=== PATIENT | male | born 1975 | race Caucasian/White ===

== ENCOUNTER → 2020-05-07 | Outpatient (CLI) | payer OTHER, SELFPAY ==
[~2020-05-07] VITALS: Ht 172.7 cm; Wt 68.0 kg
--- NOTE | 2020-05-07 17:08 | NUR ---
CALLING 'S OFFICE TO CLARIFY THE ORDER: RIGHT URETEROSCOPY WITH LASER LITHOTRIPSY.
[2020-05-07 17:44] LABS: BASOPHIL % 0.6 % (0-2); RED CELL DISTRIBUTION WIDTH 13.2 % (11.5-14.5)
[2020-05-07 17:49] LABS: PLATELET COUNT 410 x10^3mcL (130-400)
[2020-05-07 17:52] LABS: microscopic required? YES; urine erythrocyte 1+ (NEGATIVE)
[2020-05-07 17:55] LABS: ALBUMIN 3.4 g/dL (3.4-5.0); ALKALINE PHOSPHATASE 114 U/L (46-116); ALT/SGPT 41 U/L (16-63); BILIRUBIN TOTAL 0.54 mg/dL (0.20-1.00); CALCIUM 8.9 mg/dL (8.5-10.1); CARBON DIOXIDE 30.7 mmol/L (21-32); CHLORIDE SERUM 103 mmol/L (98-107); GFR1 > 60 mL/min; POTASSIUM SERUM 4.2 mmol/L (3.5-5.1); SODIUM SERUM 139 mmol/L (136-145); TOTAL PROTEIN, SERUM 7.4 g/dL (6.4-8.2)
[2020-05-07 18:11] LABS: AST/SGOT 35 U/L (15-37)
[2020-05-07 18:18] LABS: GLUCOSE SERUM 100 mg/dL (74-106)
== END | disposition home or self-care (01) ==
LOC: LB 10:00 → OR 05-10 07:30 → DS 05-10 07:30 → EDSTATUS 05-10 07:30
PROVIDERS: ATTEND Urology
DX: N20.0 Calculus of kidney (principal)

== ENCOUNTER 2020-05-21 06:11 | Day surgery (SDC) | payer OTHER, SELFPAY ==
[2020-05-17 15:00] LABS: RED CELL DISTRIBUTION WIDTH 12.9 % (11.5-14.5)
[2020-05-17 15:13] LABS: CALCIUM 9.2 mg/dL (8.5-10.1); CARBON DIOXIDE 31.8 mmol/L (21-32); CREATININE SERUM 1.4 mg/dL (0.7-1.3); POTASSIUM SERUM 3.9 mmol/L (3.5-5.1)
[2020-05-17 15:17] LABS: PLATELET COUNT 613 x10^3mcL (130-400)
--- NOTE | 2020-05-17 15:22 | NUR ---
FAXED CBC (WBC-15.5), BMP (BUN-24.0, CREAT=1.4) RESULTS TO DR FRANCIS DIAZ OFFICE. AND COPY GIVEN TO ANESTHESIA FOR REVIEW.
[2020-05-17 15:37] LABS: UA SPECIFIC GRAVITY >=1.030 (1.005-1.035); microscopic required? YES; urine erythrocyte 1+ (NEGATIVE)
--- NOTE | 2020-05-17 16:59 | NUR ---
DR FRANKLIN ANESTHESIOLOGIST REVIEWED LABS. OK FOR SURGERY.
[2020-05-17 17:01] LABS: BAND NEUTROPHIL 0 % (0-10); BASOPHIL 0 % (0-2); MONOCYTE 6 % (0-7); SEGMENTED NEUTROPHILS 70 % (37-75)
[2020-05-17 17:02] LABS: PLATELET MORPHOLOGY PLATELETS INCREASED; rbc morphology (normal/abnorm) NORMAL (NORMAL)
[~2020-05-21] VITALS: Ht 172.7 cm; Wt 68.0 kg
[2020-05-21 06:36] VITALS: BP 128/81
[2020-05-21 12:20] VITALS: BP 116/69
== END 2020-05-21 12:05 | disposition home or self-care (01) ==
LOC: DS 06:11 → OR 07:30 → DS 07:30
PROVIDERS: ATTEND Urology
DX: N13.2 Hydronephrosis with renal and ureteral calculous obstruction (principal)
CPT/HCPCS: J0696; J2175; J2250; J2405; J2704; J3010; J7030; J7120; Q9967